=== PATIENT | female | born 2005 | race African-American/Black ===

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

== ENCOUNTER 2024-01-07 22:01 | Emergency (ER) | payer BC, SELFPAY ==
[2024-01-07 22:19] VITALS: BP 114/80; PULSE 86; RESP 14; TEMP 36.6; O2SAT 100
[2024-01-08 06:30] VITALS: BP 110/67; PULSE 82; RESP 18; O2SAT 100; O2SAT 98
--- NOTE | 2024-01-08 06:32 | PC.NURSE ---
Pt c/o bilateral breast itching and burning for the last year. Pt states she has seen other Doctors about this concern and was told she had a fungal infection and was given an antifungal cream but states it provided no relief. Pt states she has experienced flakey skin around my nipples sometimes and was told to apply vaseline or aquaphor to the area but states this has not helped.
--- NOTE | 2024-01-08 07:40 | ED.GENADULT ---
HPI - General Adult General Chief complaint: Unspecified Stated complaint: breasts are bleeding, itching, and painful. Lumps Time Seen by Provider: 01/08/24 07:02 History of Present Illness HPI narrative: 18-year-old female presenting ED with a chief complaint of itchy nipples. This is been going on for over a year half. Her nipples itch in the skin becomes dry and excoriated. She has been on antifungals antibiotics and moisturizers with no relief. Patient is not follow-up with a primary care physician. She denies any fevers chills nausea vomiting diarrhea. No chest pain difficulty breathing abdominal pain Related Data Allergies Allergy/AdvReac Type Severity Reaction Status Date / Time No Known Allergies Allergy Verified 01/07/24 22:02 [facility] Past Medical History Medical History (Updated 01/08/24 @ 07:45 by Jacques Levi MD) Patient denies medical problems Surgical History Surgical History No pertinent past surgical history Social History Social History Smoking status: Never smoker Gender identity (if verbalized by the patient): Female Exam Narrative: APPEARANCE: No apparent distress. Head: atraumatic. EYES: EOMI, NOSE: Atraumatic NECK: Trachea midline RESPIRATORY: No increased rate of breathing, clear to auscultation CARDIOVASCULAR: RRR, ABDOMINAL: Non-distended MUSCULOSKELETAl: No obvious deformities NEURO: Alert. Moving 4/4 extremities SKIN:: Nipples are excoriated with dry flaking skin, no surrounding skin changes indicative of infection. No fluctuant masses PSYCHIATRIC: Normal affect Course Vital Signs Vital signs: Vital Signs Temperature 98 F 01/07/24 22:19 Pulse Rate 86 01/07/24 22:19 Respiratory Rate 14 01/07/24 22:19 Blood Pressure 114/80 01/07/24 22:19 Pulse Oximetry 100 01/07/24 22:19 Oxygen Delivery Room Air 01/07/24 22:19 Temperature 98 F 01/07/24 22:19 Pulse Rate 82 01/08/24 06:30 Respiratory Rate 18 01/08/24 06:30 Blood Pressure 110/67 01/08/24 06:30 Pulse Oximetry 100 10/01/24 06:30 Oxygen Delivery Room Air 01/07/24 22:19 Medical Decision Making MDM Narrative Medical decision making narrative: -Course: 18-year-old female presenting with over a year of itching nipples. Nipples are dry excoriated on exam. No evidence of cellulitis or infective process. Patient has already undergone antifungal bacterial and moisturizer treatments. The patient will be referred to a primary care physician in OBGYN for further management no emergent conditions to treat at this time. discharged w/ return precautions. -DDX includes but is not limited to: Dermatitis cellulitis neoplasm, fungal infection -Shared decision making / Disposition: Discharged -RX clotrimazole, Eucerin ointment Vital Signs Vital Signs: Vital Signs Temperature 98 F 01/07/24 22:19 Pulse Rate 86 01/07/24 22:19 Respiratory Rate 14 01/07/24 22:19 Blood Pressure 114/80 01/07/24 22:19 Pulse Oximetry 100 01/07/24 22:19 Oxygen Delivery Room Air 01/07/24 22:19 Temperature 98 F 01/07/24 22:19 Pulse Rate 82 01/08/24 06:30 Respiratory Rate 18 01/08/24 06:30 Blood Pressure 110/67 01/08/24 06:30 Pulse Oximetry 100 01/08/24 06:30 Oxygen Delivery Room Air 01/07/24 22:19 Discharge Plan Discharge Clinical Impression: Dermatitis Patient Disposition: Home, Self-Care Condition: Stable Instructions: Antibiotic Form, Dermatitis (ED) Additional Instructions: Please complete a course of antifungal ointment. If that does not improve your itchiness and dry skin please start using Eucerin ointment for moisturization. Please follow-up with a primary care physician or an OBGYN for further management. Return if you develop fevers, redness or signs of infection. Prescriptions: New clotrimazole 1 % cream 1
[2024-01-08 07:53] VITALS: BP 114/68; PULSE 65; RESP 20; O2SAT 100
== END 2024-01-08 07:55 | disposition home or self-care (01) ==
PROVIDERS: Emergency Provider Emergency Medicine
DX: L30.9 Dermatitis, unspecified (principal)
CPT/HCPCS: 99283